=== PATIENT | female | born 1980 | race Caucasian/White ===

== ENCOUNTER 2016-08-13 07:57 | Emergency (ER) | payer BC ==
--- NOTE | 2016-08-13 08:24 | UC ---
Throat Pain/Nasal Ramon HPI - HPI Summary HPI Summary: 36 yo female with sore throat x 3 days no n/v/d no f/c hurts to swallow - History of Current Complaint Chief Complaint: UCGeneralIllness Stated Complaint: SORE THROAT Time Seen by Provider: 08/13/16 08:15 Hx Last Menstrual Period: 07/21/16 Onset/Duration: Gradual Onset, Lasting Days Severity: Moderate Pain Intensity: 4 Pain Scale Used: 0-10 Numeric Associated Signs & Symptoms: Positive: Negative - Allergies/Home Medications Allergies/Adverse Reactions: Allergies Allergy/AdvReac Type Severity Reaction Status Date / Time dust mites Allergy Congestion Uncoded 08/13/16 08:05 PMH/Surg Hx/FS Hx/Imm Hx Previously Healthy: Yes Endocrine History: Thyroid Disease - Surgical History Surgical History: Yes Surgery Procedure, Year, and Place: L knee - Family History Known Family History: Negative: Cardiac Disease, Hypertension, Diabetes Family History: no known cardio-vascular issues in family lineage - Social History Alcohol Use: None Substance Use Type: None Smoking Status (MU): Former Smoker When Did the Patient Quit Smoking/Using Tobacco: 16 years ago - Immunization History Most Recent Influenza Vaccination: 2016 Most Recent Tetanus Shot: UTD Most Recent Pneumonia Vaccination: N/A Review of Systems Constitutional: Negative Skin: Negative Eyes: Negative ENT: Sore Throat Respiratory: Negative Cardiovascular: Negative Gastrointestinal: Negative Genitourinary: Negative Motor: Negative Neurovascular: Negative Musculoskeletal: Negative Neurological: Negative Psychological: Negative All Other Systems Reviewed And Are Negative: Yes Physical Exam Triage Information Reviewed: Yes Appearance: Well-Appearing, No Pain Distress, Well-Nourished Vital Signs: Initial Vital Signs Temp 97.5 F 08/13/16 08:06 Pulse 76 08/13/16 08:06 Resp 18 08/13/16 08:06 BP 105/68 08/13/16 08:06 Pulse Ox 97 08/13/16 08:06 Eyes: Positive: Conjunctiva Clear ENT: Positive: Hearing grossly normal, Pharyngeal erythema, Tonsillar swelling. Negative: Nasal congestion, Nasal drainage, Tonsillar exudate, Trismus, Muffled/hoarse voice Neck: Positive: Supple, Nontender, No Lymphadenopathy Respiratory: Positive: Lungs clear, Normal breath sounds, No respiratory distress Cardiovascular: Positive: RRR, No Murmur Musculoskeletal: Positive: ROM Intact, No Edema Neurological: Positive: Alert Psychological Exam: Normal Skin Exam: Normal Throat Pain/Nasal Course/Dx - Course Course Of Treatment: rs (-) - Differential Dx/Diagnosis Provider Diagnoses: ACUTE PHARYNGITIS Discharge - Discharge Plan Condition: Stable Disposition: HOME Prescriptions: Prednisone 60 mg PO DAILY #6 tab Patient Education Materials: Pharyngitis (ED) Referrals: Bella Fonseca MD [Primary Care Provider] - 3 Days (RECHECK IN 3-4 DAYS IF NOT BETTER) Additional Instructions: STREP TEST NEGATIVE RECHECK FOR WORSENING SYMPTOMS OR IF NOT BETTER EARLY NEXT WEEK
[2016-08-13 08:25] VITALS: BP 105/68
[2016-08-13] MEDS ORDERED: predniSONE TAB* 20 MG PO ONE (08:47)
== END 2016-08-13 08:56 | disposition home or self-care (01) ==
LOC: UCCORT 07:57
DX: J02.9 Acute pharyngitis, unspecified (principal); E07.9 Disorder of thyroid, unspecified; Z87.891 Personal history of nicotine dependence
CPT/HCPCS: 87651; 99212; G0463; J7512

== ENCOUNTER 2017-10-03 13:02 | Emergency (ER) | payer BC ==
[2017-10-03 13:17] VITALS: BP 105/71
--- NOTE | 2017-10-03 13:31 | UC ---
UC General HPI - HPI Summary HPI Summary: pt is c/o a sinus infection. states "it began as a cold" and "I figured it would just go away"; however, it is getting worse and now has sinus pressure, green drainage. Also c/o into L neck from L ear pressure but no d/c. denies fever. onset 2 weeks ago. - History of Current Complaint Chief Complaint: UCRespiratory Stated Complaint: SINUS COMPLAINT Time Seen by Provider: 10/03/17 13:12 Hx Obtained From: Patient Hx Last Menstrual Period: 09/22/17 Onset/Duration: Gradual Onset Pain Intensity: 3 Aggravating: nothing Alleviating: mucines was helping but stopped Associated Signs & Symptoms: Positive: Cough - Allergy/Home Medications Allergies/Adverse Reactions: Allergies Allergy/AdvReac Type Severity Reaction Status Date / Time No Known Allergies Allergy Verified 10/03/17 13:17 PMH/Surg Hx/FS Hx/Imm Hx - Additional Past Medical History Additional PMH: chronic back pain, sinusitis Endocrine History: Thyroid Disease - Surgical History Surgical History: Yes Surgery Procedure, Year, and Place: L knee - Family History Known Family History: Positive: None, Unknown Negative: Cardiac Disease, Hypertension, Diabetes Family History: no known cardio-vascular issues in family lineage - Social History Occupation: Employed Full-time Lives: With Family Alcohol Use: None Substance Use Type: None Smoking Status (MU): Former Smoker When Did the Patient Quit Smoking/Using Tobacco: 16 years ago - Immunization History Most Recent Influenza Vaccination: 2016 Most Recent Tetanus Shot: UTD Most Recent Pneumonia Vaccination: N/A Vaccination Up to Date: Yes Review of Systems Constitutional: Negative Skin: Negative Eyes: Negative ENT: Sinus Congestion, Sinus Pain/Tenderness Respiratory: Cough Cardiovascular: Negative Gastrointestinal: Negative Genitourinary: Negative Motor: Negative Neurovascular: Negative Musculoskeletal: Negative Neurological: Negative Psychological: Negative Is Patient Immunocompromised?: No All Other Systems Reviewed And Are Negative: Yes Physical Exam Triage Information Reviewed: Yes Appearance: Well-Appearing Vital Signs: Initial Vital Signs Temp 98 F 10/03/17 13:12 Pulse 64 10/03/17 13:12 Resp 14 10/03/17 13:12 BP 105/71 10/03/17 13:12 Pulse Ox 100 10/03/17 13:12 Vital Signs Reviewed: Yes Eyes: Positive: Conjunctiva Clear ENT: Positive: Pharynx normal, Nasal congestion, Sinus tenderness - maxillary. TM's occluded by cerumen.. Negative: Nasal drainage Neck: Positive: Supple, Nontender, No Lymphadenopathy Respiratory: Positive: Lungs clear, Normal breath sounds Cardiovascular: Positive: RRR, No Murmur Abdomen Description: Positive: Nontender, No Organomegaly, Soft Bowel Sounds: Positive: Present Musculoskeletal: Positive: ROM Intact Neurological: Positive: Alert Psychological: Positive: Age Appropriate Behavior Skin Exam: Normal Course/Dx - Course Course Of Treatment: Post flush=TM's gagnon and canals clear. - Differential Dx - Multi-Symptom Provider Diagnoses: sinusitis. cerumen impaction Discharge - Sign-Out/Discharge Documenting (check all that apply): Patient Departure - Discharge Plan Condition: Stable Disposition: HOME Prescriptions: Amoxicillin/Clavulanate TAB* [Augmentin TAB 875*] 875 mg PO BID #20 tab Patient Education Materials: Sinusitis (ED), Cerumen Impaction (ED) Referrals: Bella Fonseca MD [Primary Care Provider] - 7 Days - Billing Disposition and Condition Condition: STABLE Disposition: Home
== END 2017-10-03 14:05 | disposition home or self-care (01) ==
LOC: UCCORT 13:02
DX: J32.9 Chronic sinusitis, unspecified (principal); H61.23 Impacted cerumen, bilateral; Z87.891 Personal history of nicotine dependence
CPT/HCPCS: 99213; G0463

== ENCOUNTER 2018-11-10 16:30 | Emergency (ER) | payer BC ==
[2018-11-10 18:30] VITALS: BP 117/71
--- NOTE | 2018-11-10 19:22 | UC ---
Lower Extremity/Ankle HPI - HPI Summary HPI Summary: 38-year-old female presents with complaints of right ankle pain and swelling. States this morning she was walking down some steps, missed the bottom step, and causing an inversion injury to her right ankle. States she was able to walk and bear weight on the ankle immediately after the injury and throughout the day. Has noted some progressively worsening swelling to the lateral aspect of her ankle throughout the day. Denies any numbness or tingling. - History of Current Complaint Chief Complaint: UCLowerExtremity Stated Complaint: RT ANKLE INJURY Time Seen by Provider: 11/10/18 18:35 Hx Obtained From: Patient Hx Last Menstrual Period: 10/13/18 Pain Intensity: 3 - Allergies/Home Medications Allergies/Adverse Reactions: Allergies Allergy/AdvReac Type Severity Reaction Status Date / Time No Known Allergies Allergy Verified 11/10/18 18:30 Home Medications: Home Medications Hydrocodone/Acetaminophen [Hydrocodone/Acetaminophen 5-325 mg] 1 tab PO BID [History Confirmed 11/10/18] PMH/Surg Hx/FS Hx/Imm Hx - Additional Past Medical History Additional PMH: chronic back pain Endocrine History: Thyroid Disease - Surgical History Surgical History: Yes Surgery Procedure, Year, and Place: L knee - Family History Known Family History: Positive: Non-Contributory - Social History Occupation: Employed Full-time Lives: With Family Alcohol Use: None Substance Use Type: None Smoking Status (MU): Former Smoker When Did the Patient Quit Smoking/Using Tobacco: 16 years ago - Immunization History Most Recent Influenza Vaccination: 2016 Most Recent Tetanus Shot: UTD Most Recent Pneumonia Vaccination: N/A Vaccination Up to Date: Yes Review of Systems All Other Systems Reviewed And Are Negative: Yes Constitutional: Positive: Negative Skin: Negative: Bruising Respiratory: Positive: Negative Cardiovascular: Positive: Negative Gastrointestinal: Positive: Negative Genitourinary: Positive: Negative Motor: Negative: Weakness Neurovascular: Negative: Decreased Sensation Musculoskeletal: Positive: Other: - See HPI Neurological: Positive: Negative Is Patient Immunocompromised?: No Physical Exam - Summary Physical Exam Summary: GENERAL APPEARANCE: Well developed, well nourished, alert and cooperative, and appears to be in no acute distress. CARDIAC: Normal S1 and S2. No S3, S4 or murmurs. Rhythm is regular. There is no peripheral edema, cyanosis or pallor. Extremities are warm and well perfused. Capillary refill is less than 2 seconds. Peripheral pulses intact. LUNGS: Clear to auscultation without rales, rhonchi, wheezing or diminished breath sounds. ABDOMEN: Positive bowel sounds. Soft, nondistended, nontender. No guarding or rebound. No masses or hepatosplenomegally. MUSKULOSKELETAL: Normal muscular development. Normal gait. EXTREMITIES: Tenderness over the lateral malleolus of the right ankle with moderate edema but no gross deformity or ecchymosis. Full passive range of motion. No laxity of the joint. Circulation sensation intact. SKIN: Skin normal color, texture and turgor with no lesions or eruptions. Triage Information Reviewed: Yes Vital Signs: Initial Vital Signs Temp 98.6 F 11/10/18 18:25 Pulse 66 11/10/18 18:25 Resp 16 11/10/18 18:25 BP 117/71 11/10/18 18:25 Pulse Ox 99 11/10/18 18:25 Vital Signs Reviewed: Yes Diagnostics - Radiology No standard instances Radiology Interpretation Completed By: ED Physician Summary of Radiographic Findings: No acute fracture or dislocation Lower Extremity Course/Dx - Course Course Of Treatment: 38-year-old female presents with complaints of right ankle pain and swelling. States this morning she was walking down some steps, missed the bottom step, and causing an inversion injury to her right ankle. States she was able to walk and bear weight on the ankle immediately after the injury and throughout the day. Has noted some progressively worsening swelling to the lateral aspect of her ankle throughout the day. Denies any numbness or tingling. Afebrile. Vital signs stable. Patient had tenderness over the lateral malleolus of the right ankle with moderate edema but no gross deformity or ecchymosis. Full passive range of motion. No laxity of the joint. Circulation sensation intact. The mandible exam was unremarkable. Preliminary reading of the X-ray showed no acute fracture or dislocation. Patient was placed in an Binu wrap and stirrup splint by the RN. Circulation sensation were intact. Post- application. Recommending conservative treatment for a right ankle sprain including [id number] analgesics and RICE. She is to follow-up with orthopedic surgery in 5-7 days if symptoms are not improving. Anticipatory guidance guidance and warning symptoms reviewed with the patient. Verbalizes understanding and agrees with plan of care. - Differential Dx/Diagnosis Differential Diagnosis/HQI/PQRI: Contusion, Dislocation, Fracture (Closed), Sprain Provider Diagnosis: Right ankle sprain Discharge ED - Sign-Out/Discharge Documenting (check all that apply): Patient Departure All imaging exams completed and their final reports reviewed: No - Discharge Plan Condition: Stable Disposition: HOME Patient Education Materials: Ankle Sprain (ED), Ankle Stirrup Splint (ED) Referrals: Catrina Corey [Primary Care Provider] - Duane Shaffer MD [Medical Doctor] - 5 Days (If no improvement in symptoms. Call for appointment.) Additional Instructions: The x-ray performed in the clinic today showed no evidence of a fracture. The x -ray will be reviewed by the radiologist tomorrow. We will contact you if they see anything that would change your plan of care. Rest the ankle as much as possible. You may continue to walk and bear weight as tolerated. Avoid any strenuous activities or activities that cause pain. Apply ice to the affected area for 15-20 minutes at least 4 times a day to help with the pain and swelling. Elevate the leg to help reduce swelling. Take acetaminophen (Tylenol) or ibuprofen (Advil, Motrin) according to directions as needed for pain. Follow up with orthopedic surgery in 5-7 days if symptoms do not improve. Call for an appointment. Seek immediate medical attention if you have severe pain not managed with pain medication, you are unable to walk or bear any weight, develop numbness or tingling in the foot or toes, or have any worsening of symptoms. - Billing Disposition and Condition Condition: STABLE Disposition: Home
--- NOTE | 2018-11-11 08:05 | UC ---
- Progress Note Progress Note: wet read correct Course/Dx - Diagnoses Provider Diagnoses: Right ankle sprain Discharge ED - Sign-Out/Discharge Documenting (check all that apply): Post-Discharge Follow Up All imaging exams completed and their final reports reviewed: Yes - Discharge Plan Condition: Stable Disposition: HOME Patient Education Materials: Ankle Sprain (ED), Ankle Stirrup Splint (ED) Referrals: Duane Shaffer MD [Medical Doctor] - 5 Days (If no improvement in symptoms. Call for appointment.) Catirna Corey [Primary Care Provider] - Additional Instructions: The x-ray performed in the clinic today showed no evidence of a fracture. The x -ray will be reviewed by the radiologist tomorrow. We will contact you if they see anything that would change your plan of care. Rest the ankle as much as possible. You may continue to walk and bear weight as tolerated. Avoid any strenuous activities or activities that cause pain. Apply ice to the affected area for 15-20 minutes at least 4 times a day to help with the pain and swelling. Elevate the leg to help reduce swelling. Take acetaminophen (Tylenol) or ibuprofen (Advil, Motrin) according to directions as needed for pain. Follow up with orthopedic surgery in 5-7 days if symptoms do not improve. Call for an appointment. Seek immediate medical attention if you have severe pain not managed with pain medication, you are unable to walk or bear any weight, develop numbness or tingling in the foot or toes, or have any worsening of symptoms. - Billing Disposition and Condition Condition: STABLE Disposition: Home
== END 2018-11-10 19:40 | disposition home or self-care (01) ==
LOC: UCCORT 16:30
DX: S93.401A Sprain of unspecified ligament of right ankle, initial encounter (principal); W10.9XXA Fall (on) (from) unspecified stairs and steps, initial encounter; Y93.01 Activity, walking, marching and hiking; Y92.9 Unspecified place or not applicable; Z87.891 Personal history of nicotine dependence
CPT/HCPCS: 99213; G0463